=== PATIENT | female | born 1995 | race Caucasian/White ===

== ENCOUNTER 2019-12-26 11:27 | Emergency (ER) | payer OTHER, SELFPAY ==
[2019-12-26 11:34] VITALS: BP 133/86; PULSE 88; RESP 16; TEMP 36.6; O2SAT 99
--- NOTE | 2019-12-26 11:54 | ED.ABDPAIN ---
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 Patient states she has 1/2-week history since Tuesday of right-sided abdominal pain. She went to see her CHILD CARE SPECIALIST yesterday as she is a G0, P0, IUD in place,LMP a year ago -but nothing definitive was found after urinalysis and test. She has nausea, the pain is worse with some movement or deep breathing, , and so Not colicky. No fever, frequency/dysuria/hematuria, vomiting/diarrhea, she is obstipated-BMs have been delayed, last BM Tuesday. Symptoms are mild, apparently better only yesterday with Motrin.No cough, SOB, loss of taste/smell, known sick contacts, travel history, CP, rash. Related Data Home Medications Medication Instructions Recorded Confirmed hydroxyzine HCl 50 mg tablet 50 mg PO TID PRN 08/21/19 Allergies Allergy/AdvReac Type Severity Reaction Status Date / Time No Known Allergies Allergy Verified 12/26/19 12:20 Review of Systems Review of Systems: Narrative: General/Constitutional: No weight loss,fever Eyes: N0: Redness,discharge Ears/Nose/Throat: No: Epistaxis,ear discharge Respiratory: Denies: Hemoptysis Gastrointestinal: No Vomiting, Bleeding-rectal Skin: No Lumps, eruption Neurologic: No Focal Weakness,Sz Hematologic: Denies: Petechiae/Purpura Psychiatric: No: Suicida ideationl All Other Systems: Reviewed and Negative [facility] Family History Family History (Updated 02/15/18 @ 08:01 by DOCTOR UNKNOWN) Mother Patient's mother is in good health Father Patient's father is in good health Social History Social History Smoking status: Never smoker Alcohol intake: current Gender identity (if verbalized by the patient): Female Comments At time of signature, agree with nursing past medical, surgical, social and family history. There is no relevant family history pertinent to the presenting complaint Exam Narrative: Exam Narrative: General Appearance: Well appearing, Conjunctiva clear Ears: External ear normal Nose: Normal nose Mouth/Throat: Normal appearing, supple Respiratory: Airway patent, No respiratory distress Abdomen: Soft, RUQ tender, No massess, No organomegaly (no rebound/ surgical signs), Hyperactive bowel sounds Musculoskeletal: Full ROM Skin: Warm, Dry Neurological: A&O x3, , Normal affect Course Vital Signs Vital signs: Vital Signs Temperature 97.8 F 12/26/19 11:34 Pulse Rate 88 12/26/19 11:34 Respiratory Rate 16 12/26/19 11:34 Blood Pressure 133/86 12/26/19 11:34 Pulse Oximetry 99 12/26/19 11:34 Temperature 97.8 F 12/26/19 11:34 Pulse Rate 88 12/26/19 11:34 Respiratory Rate 16 12/26/19 11:34 Blood Pressure 133/86 12/26/19 11:34 Pulse Oximetry 99 12/26/19 11:34 MDM - Abdominal Pain Lab Data Labs: Urine Glucose Negative Reference Range: Negative Urine Bilirubin Negative Reference Range: Negative Urine Ketone Negative Reference Range: Negative Urine Specific [place] 1.020 Reference Range:1.001-1.035 Urine Blood Negative Reference Range: Negative * * Urine pH 7.0 Reference Range: 5.0-9.0 Urine Protein Negative Reference Range: Negative Urine Urobilinogen 0.2 Reference Range: 0.2-1.0 Urine Nitrate Negative Reference Range: Negative Urine Leukocyte Negative Reference Range: Negative Urine Color
== END 2019-12-26 12:08 | disposition short-term general hospital (02) ==
PROVIDERS: Emergency Provider Emergency Medicine; PCP Internal Medicine
DX: R10.11 Right upper quadrant pain (principal)
CPT/HCPCS: 81003; 99202; G0463

== ENCOUNTER 2019-12-26 12:20 | Emergency (ER) | payer OTHER, SELFPAY ==
--- NOTE | ~2019-12-26 | CT_ITS ---
EXAMINATION: CT abdomen pelvis w con EXAM DATE: 12/26/2019 14:08 INDICATION: Right lower quadrant pain. Rule out appendicitis. TECHNIQUE: Spiral CT of the abdomen and pelvis was performed following intravenous injection of 100 m L Omnipaque 350. Axial, coronal and sagittal images were reviewed. The dose-length product (DLP) fo r this examination was 296.35 mGy-cm. The exposure was tailored according to patient size (auto mA e xposure control), and iterative reconstruction (ASIR) was used as additional dose reduction technique . There is no prior study for comparison. FINDINGS: The liver, spleen, adrenal glands and pancreas are unremarkable. Gallbladder is unremarkab le. No biliary obstruction. Portal and splenic veins are patent. Kidneys enhance symmetrically. T here is no hydronephrosis. There is IUD which appears to be centrally located within the endometriu m, expected position. Evidence of recently ruptured right ovarian cyst. The bladder is unremarkable. There is no retroperitoneal or pelvic lymphadenopathy. The appendix is normal. The stomach and small bowel are unremarkable. There is moderate amount of c olonic stool. No free intraperitoneal gas. The heart is normal in size. There are no pericardial or pleural effusions. The lung bases are unremarkable. There are no osteoblastic or osteolytic les ions identified. IMPRESSION: 1. Evidence of recently ruptured right ovarian cyst. 2. Normal appendix. Reviewed, dictated and finalized at location B.
--- NOTE | ~2019-12-26 | US_ITS ---
EXAMINATION: US pelvic complete w TV EXAM DATE: 12/26/2019 15:20 INDICATION: Right-sided pelvic pain. Abnormal CT scan. TECHNIQUE: Pelvic transabdominal and transvaginal sonogram was performed. There are multiple graysca le and Doppler images available for interpretation. Correlation is made to CT abdomen same date. FINDINGS: Uterus measures 7.3 x 3.8 x 2.9 cm, and is morphologically normal. Endometrial stripe martin sures well within normal limits. There is small free pelvic fluid. Right adnexa: The ovary measures 2.9 x 2.7 x 3.5 cm and is morphologically normal. Ovarian vascular f low confirmed. Left adnexa: The ovary measures 2.0 x 1.7 x 1.5 cm and is morphologically normal. Ovarian vascular fl ow confirmed. IMPRESSION: 1. Unremarkable pelvic ultrasound exam. Reviewed, dictated and finalized at location B.
[2019-12-26 12:25] VITALS: BP 143/92; PULSE 78; RESP 18; TEMP 36.5; O2SAT 100
[2019-12-26 12:40] LABS: Basophils Percent Auto 0.4 % (0.2-1.2); Eosinophils Absolute Auto 0.1 K/mm3 (0-0.3); Eosinophils Percent Auto 1.5 % (0-4.4); Hematocrit 39.5 % (37.0-47.0); Hemoglobin 13.6 g/dL (12.0-15.0); Lymphocytes Absolute Auto 2.19 K/mm3 (0.9-3.2); Lymphocytes Percent Auto 42.2 % (18.3-44.2); Mean Corpuscular HGB Conc 34.4 g/dl (32-36); Mean Corpuscular Hemoglobin 31.5 pg (26-34); Mean Corpuscular Volume 91.4 fl (80-100); Mean Platelet Volume 10.4 fl (7.4-10.4); Monocytes Absolute Auto 0.3 K/mm3 (0.1-0.6); Monocytes Percent Auto 5.6 % (2.6-8.5); Neutrophils Absolute Auto 2.6 K/mm3 (1.3-6.7); Neutrophils Percent Auto 50.3 % (45.5-73.1); Platelet Count Result 267 k/mm3 (150-375); Red Blood Count 4.32 M/mm3 (4.2-5.4); Red Cell Distribution Width 12.3 % (11.5-14.5); White Blood Count 5.2 K/mm3 (4.5-10.0)
[2019-12-26 12:52] LABS: Add Urine Microscopic? NO; Appearance Urine Clear (Clear); Bilirubin Urine Negative (Negative); Blood Urine Negative (Negative); Color Urine Straw (Yellow); Glucose Urine UA Negative (Negative); Ketones Urine Negative (Negative); Leukocyte Esterase Ur Negative LEU/UL (Negative); Nitrate Urine Negative (Negative); Protein Urine Negative (Negative); Specific Grav Ur 1.006 (1.001-1.035); Urobilinogen Urine Negative mg/dL (<2.0)
[2019-12-26 12:58] LABS: Alanine Aminotransferase 13 U/L (4-35); Albumin Level 4.8 g/dL (3.5-5.1); Alkaline Phosphatase 87 U/L (38-126); Anion Gap 7 mmol/L (8-16); Aspartate Amino Transferase 25 U/L (14-36); Blood Urea Nitrogen 7 mg/dL (7-17); Calcium 9.8 mg/dL (8.4-10.2); Carbon Dioxide 26 mmol/L (22-30); Chloride 105 mmol/L (98-107); Estimated CRCL calculation 107 ml/min; Estimated Glomerular Filt Rate > 60; Glucose 106 mg/dL (65-105); Lipase 63 U/L (23-300); Potassium 4.1 mmol/L (3.4-5.0); Sodium 138 mmol/L (137-145)
--- NOTE | 2019-12-26 13:31 | ED.ABDPAIN ---
HPI - Abdominal Pain General Chief Complaint: Abdominal Pain Stated Complaint: abd pain Time Seen by Provider: 12/26/19 13:31 Source: patient Mode of arrival: ambulatory Limitations: no limitations History of Present Illness HPI narrative: Patient is a healthy 24-year-old female who presents for evaluation of abdominal pain. Patient has had a 48-hour history of worsening right-sided lower abdominal pain, described as dull, aching in nature, has become more severe over the past 48 hours. Patient states the pain seems to radiate from the middle of the abdomen to the right side. Associated with nausea, denies any emesis. Denies fever, chills, cough or shortness of breath. No recent sick contacts. She reports mild constipation. Patient was seen by her DEMOGRAPHER yesterday with a normal pelvic exam. She has an IUD and does not believe she is . No history of sexual transmitted infection. No vaginal discharge or bleeding. Related Data Home Medications Medication Instructions Recorded Confirmed hydroxyzine HCl 50 mg tablet 50 mg PO TID PRN 08/21/19 Allergies Allergy/AdvReac Type Severity Reaction Status Date / Time No Known Allergies Allergy Verified 12/26/19 12:20 Review of Systems Review of Systems: Narrative: CONSTITUTIONAL: Denies fever, chills, or sweats. ENT: Denies rhinorrhea, congestion CARDIOVASCULAR: Denies chest pain, palpitations, or edema. RESPIRATORY: Denies cough or dyspnea. GASTROINTESTINAL: Reports abdominal pain and nausea, reports mild constipation GENITOURINARY: Denies dysuria or hematuria. SKIN: Denies rash or itching. MUSCULOSKELETAL: Denies back pain, joint pain, or myalgia. NEUROLOGIC: Denies headache, numbness, or weakness. [facility] Past Medical History Medical History Anxiety Back pain Family History Family History (Updated 02/15/18 @ 08:01 by DOCTOR UNKNOWN) Mother Patient's mother is in good health Father Patient's father is in good health Social History Social History Smoking status: Never smoker Alcohol intake: current Gender identity (if verbalized by the patient): Female Exam Narrative: Exam Narrative: GENERAL: Awake, alert, conversant HEAD: Normocephalic, atraumatic. EYES: PERRLA and EOMI. ENT: Nares clear, no rhinorrhea or epistaxis. Mucous membranes moist. NECK: Supple. CHEST: No respiratory distress, breathing even and non labored HEART: Regular rate, sinus rhythm ABDOMEN:Non distended, tenderness to the periumbilical area and right lower quadrant, no guarding, mild right upper quadrant tenderness EXTREMITIES: Normal range of motion. No edema. SKIN: Warm, dry, no rash. NEURO:No focal deficits. Alert and oriented x3 Course Vital Signs Vital signs: Vital Signs Temperature 36.5 C 12/26/19 12:25 Pulse Rate 78 12/26/19 12:25 Respiratory Rate 18 12/26/19 12:25 Blood Pressure 143/92 H 12/26/19 12:25 Pulse Oximetry 100 12/26/19 12:25 Temperature 36.5 C 12/26/19 12:25 Pulse Rate 78 12/26/19 12:25 Respiratory Rate 18 12/26/19 12:25 Blood Pressure 143/92 H 12/26/19 12:25 Pulse Oximetry 100 12/26/19 12:25 MDM - Abdominal Pain MDM Narrative Medical decision making narrative: Patient presenting for evaluation of right-sided abdominal pain. At the time of assessment, ABCs are intact and vital signs are stable. Patient does have focal right lower quadrant tenderness without peritoneal signs. Otherwise no vaginal discharge, vaginal bleeding. Patient recently seen by her professor of psychiatry yesterday with normal evaluation. IV access obtained and labs were drawn. Laboratory results are reassuring. No leukocytosis, no electrolyte derangement. No UTI. CT scan shows evidence of ruptured ovarian cyst without evidence of acute appendicitis or acute cholecystitis. No other intra-abdominal findings other than mild constipation.
[2019-12-26] MEDS: SODIUM CHLORIDE 0.9% IV 1,000 ML 999 ML IV CONT (14:29)
--- NOTE | 2019-12-26 15:08 | PC.NURSE ---
Patient to ultrasound via stretcher
[2019-12-26 15:47] VITALS: BP 132/80; PULSE 80; RESP 14; O2SAT 98
== END 2019-12-26 15:48 | disposition home or self-care (01) ==
PROVIDERS: Emergency Provider Emergency Medicine; PCP Internal Medicine
DX: N83.201 Unspecified ovarian cyst, right side (principal); F41.9 Anxiety disorder, unspecified
CPT/HCPCS: 36415; 74177; 76830; 76856; 80053; 81003; 81025; 83690; 85025; 96374; 99284; J0131; J7030; Q9967

== ENCOUNTER 2020-06-17 11:25 | Outpatient (CLI) | payer OTHER, SELFPAY | END 2020-06-17 11:26 | disposition home or self-care (01) | LOC: ANHLAB 11:26 | PROVIDERS: PCP Internal Medicine; Visit Provider Clinical Nurse Specialist | DX: J02.9 Acute pharyngitis, unspecified (principal) | CPT/HCPCS: 87081; 87880 ==

== ENCOUNTER → 2021-04-03 07:37 | Outpatient (CLI) | payer BC, SELFPAY ==
[2021-04-06 14:06] LABS: SARS-CoV-2 RNA PCR Negative
== END ==
PROVIDERS: PCP Internal Medicine; Visit Provider Internal Medicine
DX: R68.89 Other general symptoms and signs (principal); Z20.822 Contact with and (suspected) exposure to COVID-19
CPT/HCPCS: C9803; U0003; U0005